=== PATIENT | male | born 1980 | race Caucasian/White ===

== ENCOUNTER 2022-04-22 11:50 | Emergency (ER) | payer BC, SELFPAY ==
[2022-04-22 11:58] VITALS: BP 145/88; PULSE 90; RESP 22; TEMP 36.6; O2SAT 98; BMI 25.5
--- NOTE | 2022-04-22 12:50 | ED_ITS ---
HPI - General Adult General Time Seen by Provider: 12:51 Date Seen: 04/22/22 Chief complaint: Shoulder Injury/Pain Stated complaint: Pinched nerve behind left shoulder Time Seen by Provider: 04/22/22 11:53 Source: patient and RN notes reviewed Mode of arrival: ambulatory Limitations: no limitations History of Present Illness HPI narrative: Patient is a 41-year-old male from out of town here for [facility] with concern of pinched nerve in his neck. He has left interscapular back pain that is sharp and stabbing. This is in the context of underlying neck pain in pain into his arm that is been bothering him for about 6 weeks. He has been trying to get into physical therapy. He had an episode in 2012 and 1 in 2017. He does not remember what he did or any medicines that he took. He will be flying home tomorrow. He is getting some numbness in his left 2nd finger now, this is new. The pain is severe in this interscapular area. There is no new trauma, no trauma that precipitated this event 6 weeks ago. Today the pain got severe when he is just attempting to get into the car. He believes he has had an MRI of his neck before and has had what sounds to be a steroid injection in his neck. Does not remember if use prednisone before. No fevers or chills. No concomitant illness. Related Data Previous Rx's Medication Instructions Recorded cyclobenzaprine 10 mg tablet 10 mg PO TID PRN muscle spasm #10 04/22/22 tabs oxycodone 5 mg tablet 5 mg PO Q6H PRN pain #6 tabs 04/22/22 prednisone 20 mg tablet 20 mg PO BID #10 tabs 04/22/22 Allergies Allergy/AdvReac Type Severity Reaction Status Date / Time No Known Drug Allergies Allergy Verified 04/22/22 12:03 Review of Systems Status of ROS: Reports: 6 or more systems reviewed and unremarkable except as noted in History and below PFSH PFSH Social History Smoking Status: Never smoker Do you use any of these nicotine containing products: None How often do you have a drink containing alcohol: 4 or more times a week How many standard drinks containing alcohol do you have on a typical day: 1 or 2 How often do you have six or more drinks on one occasion: Never AUDIT-C Alcohol total score: 4 Non-prescribed substance use: denies use Exam 2 Const: Vital Signs, click to edit/add: Vital Signs - 24 hr 04/22/22 11:58 Temperature 97.8 F Pulse Rate [Right Pulse Oximeter] 90 Respiratory Rate 22 Blood Pressure [Le ft Upper Arm] 145/88 H Pulse Oximetry 98 Oxygen Delivery Me thod Room Air Documenting provider has reviewed patient's vital signs: yes Common normals: average body habitus, oriented x3, no limitations, healthy appearing and alert General appearance: in distress (Quite uncomfortable from the pain he is feeling in his neck and back) moderate Other: Has tenderness in the left interscapular back area but not over the spine itself. No midline tenderness over the spine. No overlying skin changes. HENMT: Common normals: normocephalic and head/scalp atraumatic Head and scalp: normocephalic and atraumatic Eye: Common normals: PERRL, EOMs intact bilaterally, conjunctivae normal and no scleral icterus Conjunctiva: conjunctiva(e) normal Pupil: PERRL Neck & C-Spine: Common normals: full ROM, no lymphadenopathy, supple, no meningeal signs, no JVD and thyroid normal Thyroid: thyroid normal Chest: Common normals: inspection of chest normal and palpation of chest normal (Outside of some left interscapular mild tenderness) Resp: Common normals: normal respiratory effort, no retractions, no use of accessory muscles and clear to auscultation bilaterally Auscultation: clear to auscultation bilaterally Cardio: Common normals: no JVD, regular rate, regular rhythm, S1 normal heart sound, S2 normal heart sound, no gallops, no clicks and no murmurs Rate: regular rate Rhythm: regular rhythm Heart sounds: S1 normal and S2 normal Extremity: Common normals: normal to inspection, full ROM, normal capillary refill, no joint enlargement and no clubbing, cyanosis or edema Other: Has good peripheral pulse, seems to have normal light touch sensation. Strength is 5 5 and symmetric throughout. Neurovascular is intact however. Does have pain with rotation to the left. Biceps DTRs are 1+ symmetric. Neuro: Common normals: oriented x3 Sensorium/orientation: alert Men ingeal signs: no meningeal signs Course Course Hospital Course: Given his history, exam, do feel that this is likely a radiculopathic feature from his cervical spine. Without any trauma or fever, do not feel he needs any acute imaging at this time. Have reviewed with him an MRI followup if 1 has not been done within a few years might be considered when he gets back home. He certainly needs to work on getting in for physical therapy when he gets home. He does state that it takes awhile and things are difficult to get into out where he lives. We discussed pain management and prednisone to help with inflammation. Recommend 30 mg IM Toradol now for pain management and will get an ice pack to the interscapular area. Reevaluation(s) Reevaluation #1: Patient is still having pain but feels much better. He is much more comfortable, able to sit on the bed and resting. Time: 14:05 Vital Signs Vital signs: Initial Vital Signs Temperature 97.8 F 04/22/22 11:58 Temperature Source Temporal Artery Scan 04/22/22 11:58 Pulse Rate 90 04/22/22 11:58 Pulse Rhythm 04/22/22 11:58 Respiratory Rate 22 04/22/22 11:58 Blood Pressure 145/88 H 04/22/22 11:58 Blood Pressure Mean 107 04/22/22 11:58 Blood Pressure Position Sitting 04/22/22 11:58 Pulse Oximetry 98 04/22/22 11:58 Oxygen Delivery Method 04/22/22 11:58 Vital Signs Temperature 97.8 F 04/22/22 11:58 Pulse Rate 90 04/22/22 11:58 Respiratory Rate 22 04/22/22 11:58 Blood Pressure 145/88 H 04/22/22 11:58 Pulse Oximetry 98 04/22/22 11:58 Oxygen Delivery Method 04/22/22 11:58 Temperature 97.8 F 04/22/22 11:58 Pulse Rate 90 04/22/22 11:58 Respiratory Rate 22 04/22/22 11:58 Blood Pressure 145/88 H 04/22/22 11:58 Pulse Oximetry 98 04/22/22 11:58 Oxygen Delivery Method 04/22/22 11:58 Critical Care Time Critical Care Time Critical Care Time: No Discharge Plan Discharge Clinical Impression: Left cervical radiculopathy Condition: Stable Instructions: Cervical Radiculopathy (ED) Additional Instructions: It start prednisone, take with food, take as prescribed. Use Tylenol 1000 mg 3 times a day baseline for pain. Can use Toradol as needed for extra pain control, again take with food to protect her stomach. Once were done with the Toradol, can switch to ibuprofen or Aleve per bottle directions. Ice pack and neck area to help diminish pain. Can use muscle relaxant as prescribed to help with pain management as well. Have written for a small amount of narcotic pain medicines to help you get back home, you cannot drive, operate machinery or drink alcohol with this. Need to get scheduled with a primary provider or susana eone to further address this upon return home. Do recommend continuing to get scheduled for physical therapy. Activity Level: Activity as Tolerated Prescriptions: New prednisone 20 mg tablet 20 mg PO BID Qty: 10 0RF cyclobenzaprine 10 mg tablet 10 mg PO TID PRN (Reason: muscle spasm) Qty: 10 0RF oxycodone 5 mg tablet 5 mg PO Q6H PRN (Reason: pain) Qty: 6 0RF Follow Up/Referrals: Provider,Not a Local [Primary Care Provider] - Stand Alone Forms: [employer] Info Instructions
[2022-04-22] MEDS: KETOROLAC 30 MG/ML inj IM (13:15)
== END 2022-04-22 14:51 | disposition home or self-care (01) ==
PROVIDERS: Emergency Provider Family Medicine
DX: M54.12 Radiculopathy, cervical region (principal)
CPT/HCPCS: 96372; 99283; 99284; J1885